=== PATIENT | male | born 1985 | race Two or more races ===

== ENCOUNTER 2020-09-23 06:34 | Emergency (ER) | payer OTHER ==
[~2020-09-23] VITALS: Ht 175.3 cm; Wt 80.8 kg
[2020-09-23 06:37] VITALS: BP 137/88
[2020-09-23] MEDS ORDERED: OXYcodone/APAP 5/325MG TABLET ONE (06:58)
[2020-09-23] MEDS ORDERED: OXYcodone/APAP 5/325MG TABLET PO ONE (07:00)
--- NOTE | 2020-09-23 07:01 | NUR ---
PT MEDICATED PER EMAR. RAD IN ROOM.
[2020-09-23] MEDS ORDERED: LIDOCAINE-MPF 1%, 5ML ONE (07:28)
[2020-09-23] MEDS ORDERED: BUPIVACAINE 0.25% ONE (07:28)
--- NOTE | 2020-09-23 08:10 | NUR ---
Patient given discharge instructions and they have confirmed that they understand the instructions. Patient ambulatory with steady gait.
== END 2020-09-23 08:11 | disposition home or self-care (01) ==
LOC: ED 07:27
DX: S62.336A Displaced fracture of neck of fifth metacarpal bone, right hand, initial encounter for closed fracture (principal); V11.4XXA Pedal cycle driver injured in collision with other pedal cycle in traffic accident, initial encounter; Y93.89 Activity, other specified; Y92.410 Unspecified street and highway as the place of occurrence of the external cause; Y99.8 Other external cause status
CPT/HCPCS: 29125; 99283

== ENCOUNTER 2020-12-31 19:27 | Emergency (ER) | payer OTHER ==
--- NOTE | 2020-12-31 20:46 | NUR ---
[employer] ASSOCIATE: PT. HAS BEEN ON WALL WITH [facility]. PT. LEFT AMA FROM [facility] AND SIGNED OUT AMA WITH [facility].
== END 2020-12-31 20:47 | disposition left against medical advice (07) ==
LOC: ED 20:00
DX: R07.89 Other chest pain (principal); R19.7 Diarrhea, unspecified; R11.0 Nausea; Z53.21 Procedure and treatment not carried out due to patient leaving prior to being seen by health care provider